=== PATIENT | female | born 1990 | race Caucasian/White ===

== ENCOUNTER 2025-02-03 09:37 | Inpatient (IN) | payer BC, SELFPAY ==
[2025-02-03] VITALS (46 sets, daily range): BP systolic 91–123; BP diastolic 61–81; PULSE 65–86; RESP 14–23; TEMP 35.9–36.2; O2SAT 68–100; BMI 33.3
[2025-02-03] MEDS: Lactated Ringers 1,000 ML 999 ML IV (10:10)
[2025-02-03 10:48] LABS: Absolute Lymphocyte Count 1.17 X10^3/uL (0.83-4.51); Absolute Neutrophil Count 5.2 X10^3/uL (2.0-7.7); Basophil# 0.05 X10^3/uL; Basophil% 0.7 % (0-1); Eosinophil# 0.03 X10^3/uL; Eosinophils% 0.4 % (0-5); Hematocrit 35.6 % (37-47); Hemoglobin 12.3 g/dL (12.0-15.0); Lymphocyte # 1.17 X10^3/ul (0.83-4.51); Lymphocyte % 16.7 % (19-41); Mean Corp Hgb Conc 34.6 g/dL (32-36); Mean Corpuscular Volume 86.8 fL (81-99); Mean Platelet Vol. 11.6 fl (6.2-12.0); Monocyte# 0.48 X10^3/uL; Monocyte% 6.8 % (0-10); NRBC Flagged by Analyzer 0 % (0-5); Neutrophil # 5.22 X10^3/uL (2.7-7.7); Neutrophil % 74.5 % (47-70); Platelet Count 213 K/mm3 (150-450); RBC Distribution Width SD 40.9 fl (35.1-43.9)
[2025-02-03] MEDS: Acetaminophen 500 MG Tablet 1000 MG PO ×3 (10:49→23:56)
[2025-02-03] MEDS: Lactated Ringers 1,000 ML 150 ML IV (10:49)
[2025-02-03 11:10] LABS: Syphilis Antibodies Nonreactive (Nonreactive)
[2025-02-03] MEDS: Sodium Citrate/Citric Acid 30 ML UDC PO (11:51)
--- NOTE | 2025-02-03 12:05 | HP.PCM.OB_ITS ---
HPI - General General Date of Admission: 02/03/25 Date of Service: 02/03/25 HPI Narrative ALYSSA PRATT, is a 34 F who presents for repeat . Maternal Data Information MARII Calculator Estimated Delivery Date Method Current WG Current Estimate 02/08/25 Manual 39w 2d [facility] Medical History Thyroid disorder Home Medications ?Medication ?Instructions ?Recorded ?Last Taken ?Type levothyroxine 50 mcg tablet 50 mcg PO DAILY hypothyroi d 02/03/25 02/03/25 06:00 History vitamins-iron fumarate 65 1 tab PO DAILY preg jarred 02/03/25 02/02/25 10:00 History mg iron-folic acid 1 mg tablet (Mynatal Plus) Allergy/AdvReac Type Severity Reaction Status Date / Time succinylcholine Allergy Severe Other Verified 02/03/25 10:15 latex Allergy Intermediate Rash Verified 02/03/25 11:43 Surgical History History of surgery Social History Smoking Status: Never smoker History Elective abortions Hx Para 2 Spontaneous abortions Hx # Term Pregnancies Ectopic pregnancies Hx # Pregnancies Multiple births # of living children Vital Signs Vital Signs Vital Signs: 02/03/25 09:47 02/03/25 09:47 02/03/25 10:45 Temperature Temperature Source Temporal Pulse Rate 78 Respiratory Rate Pulse Ox 99 02/03/25 10:45 02/03/25 10:45 02/03/25 10:45 Temperature Temperature Source Pulse Rate 79 Respiratory Rate 15 Pulse Ox 99 02/03/25 10:45 Temperature 97.1 F L Temperature Source Pulse Rate Respiratory Rate Pulse Ox Weight Weight: 182 lb Body Mass Index (BMI) 33.3 Physical Exam Const alert, oriented x3 and no apparent distress Chest inspection of chest normal GI soft to palpation, non-tender and non-distended Inspection: gravid Labs Labs Labs: Blood Type O POSITIVE Antibody Screen NEGATIVE Hct 35.6 % (37-47) L Hgb 12.3 g/dL (12.0-15.0) Syphilis Total Ab Nonreactive (Nonreactive) Assessment & Plan (1) Previous section: COMMENT: PLAN: Plan Admit to L&D Proceed with repeat . Informed consent signed after discussing R/B/A. Routine care.
[2025-02-03] MEDS: Cefazolin 2 GM in Syringe IV (12:10)
--- NOTE | 2025-02-03 13:00 | OP.PCM_ITS ---
Maternal Data Information MARII Calculator Estimated Delivery Date Method Current WG Current Estimate 02/08/25 Manual 39w 2d Operative Report (OB) Details Procedure Type: low transverse Date of Procedure: 02/03/25 Procedure Start Time: 12:26 Procedure Stop Time: 13:10 Pre-Operative Diagnosis: Repeat Elective Post-Operative Diagnosis: Same as Pre-operative diagnosis Classification: Scheduled Type of Anesthesia: Spinal Antibiotic Given: Ancef 2 grams IV x1 Drain: Tyson to straight drain Estimated Blood Loss: 700ml Fluids Replaced: 1000ml Findings Description of surgery: The patient was taken to the operating room where spinal anesthesia was placed & found to be adequate. She was prepped and draped in the dorsal supine position with a leftward tilt. A Pfannenstiel skin incision was made approximately 2 cm above the symphysis pubis and carried through to the underlying fascia with the scalpel. The fascia was incised incised in the midline and extended laterally with the Byrd scissors. The rectus muscles were in the midline and the peritoneum was entered carefully and bluntly. The peritoneal incision was stretched and the bladder blade was inserted. Vesicouterine peritoneum was tented up, incised & then bladder flap created gently. The uterine incision was made in a low transverse fashion with the scalpel and extended superiorly and inferiorly with blunt dissection. The infant's head was brought to the incision in the flexed position and delivered without difficulty. The head was gently guided to allow delivery of the anterior and posterior shoulders. The body then delivered with fundal pressure in the standard fashion. The 3VC cord was clamped and cut in slightly delayed fashion. The infant was handed off to the waiting pediatric radiologist. The placenta was delivered with fundal massage and gentle traction in the standard fashion. The uterus was exteriorized and cleared of clots and debris. The uterine incision was closed with #1 Vicryl suture in a running locked fashion. Monocryl suture was used in an imbricating fashion. The incision was examined and was found to be hemostatic. The uterus was returned to the abdominal cavity. After irrigating Reena was placed over the uterine incision as some areas were denuded (but hemostatic). The rectus muscle was examined and any bleeding was Bovie cauterized. The fascia was closed with PDS suture in a running standard fashion. The subcutaneous tissue was examining and any bleeding was Bovie cauterized. The subcutaneous tissue was reapproximated with interrupted sutures. The skin was closed in a subcuticular fashion by the PRIMARY SPECIAL EDUCATION TEACHER while I was present in the OR. The remainder of the procedure was performed by me with assistance. Surgical findings: normal maternal uterus and adnexa Presentation: Vertex Amniotic Membrane Rupture Type: Artificial Amniotic Fluid Description: Clear Placental Delivery Description: Expressed Placenta Disposition: [facility] Specimen collected: No Cord Vessel Description: 3 Vessels Cord Entanglement: None A gender: Female (7-2) (1 minute): 9 Delayed Cord Clamping: Yes Design Engineering Manager birdcage assembler: Yes Roof Service Technician: Enmanuel Barrios Tasks completed by hardware sales assistant: Opening & closing and Retracting Complications Complications: No
[2025-02-03] MEDS: Oxytocin 15 Units/NS 250ml 15 UNITS/250 ML IV.SOLN 83 UNITS IV (13:30)
[2025-02-03] MEDS: Ketorolac 30 MG/ML Syringe IV ×2 (13:48→20:42)
[2025-02-04] MEDS: Enoxaparin 40 MG/0.4 ML Syringe SC (02:25)
[2025-02-04] MEDS: Ketorolac 30 MG/ML Syringe IV ×2 (02:26→08:44)
[2025-02-04 04:36] VITALS: BP 94/54; PULSE 60; RESP 16; TEMP 36.3; O2SAT 99
--- NOTE | 2025-02-04 04:44 | PN.OBGYN_ITS ---
Subjective Subjective Doing well per patient and nursing staff. Ambulating and taking PO without difficulty. Voiding and passing flatus. Pain controlled. , services for assistance. Denies headache, visual changes, chest pain, shortness of breath, leg pain or increased bleeding. Lochia normal. Objective Data Objective Data Vital Signs: Vital Signs Temp Pulse Resp BP Pulse Ox O2 Del Method 97.3 F L 60 16 94/54 L 99 Room Air 02/04/25 04:36 02/04/25 04:36 02/04/25 04:36 02/04/25 04:36 02/04/25 04:36 02/04/25 04:36 Oxygen Delivery Method Room Air Weight: 182 lb Body Mass Index (BMI) 33.3 Intake & Output: Intake and Output for Last 24 Hours 02/02/25 02/03/25 02/04/25 23:59 23:59 23:59 Intake Total 1447.5 / 1447.5 Output Total 800 / 800 Balance 647.5 / 647.5 Lab / Micro Data 02/03/25 10:10 Labs: Laboratory Results - last 24 hr 02/03/25 10:10: WBC 7.0, RBC 4.10 L, Hgb 12.3, Hct 35.6 L, MCV 86.8, MCH 30.0, MCHC 34.6, RDW Std Deviation 40.9, RDW Coeff of Lucy 13.0, Plt Count 213, MPV 11.6, Immature Gran % (Auto) 0.900, Neut % (Auto) 74.5 H, Lymph % (Auto) 16.7 L, [place] % (Auto) 6.8, Eos % (Auto) 0.4, Baso % (Auto) 0.7, Absolute Neuts (auto) 5.2, Absolute Lymphs (auto) 1.17, Nucleated RBC % 0, Syphilis Total Ab Nonreactive, Blood Type O POSITIVE, Antibody Screen NEGATIVE ROS Constitutional Constitutional: Reports systems reviewed and no addt'l complaints, except as documented; Denies headache(s) Eyes Eyes: Denies acute decrease in peripheral vision, blurry vision or change in vision ENT HEENT: Reports systems reviewed and no addt'l complaints, except as documented Cardiovascular Cardiovascular: Denies chest pain or dizziness Respiratory/Chest Respiratory/Chest: Denies cough, dyspnea, dyspnea on exertion, shortness of breath at rest or shortness of breath with exertion Gastrointestinal Gastrointestinal: Denies abdominal pain, diarrhea, nausea or vomiting Genitourinary Genitourinary: Denies abdominal discomfort Musculoskeletal Musculoskeletal: Denies limited range of motion Integumentary Integumentary: Reports systems reviewed and no addt'l complaints, except as documented Neurologic Neurologic: Reports systems reviewed and no addt'l complaints, except as documented Psychiatric Psychiatric: Reports systems reviewed and no addt'l complaints, except as documented Endocrine Endocrinology: Reports systems reviewed and no addt'l complaints, except as documented Hematologic/Lymphatic Hematologic/Lymphatic: Reports systems reviewed and no addt'l complaints, except as documented Allergic/Immunologic Allergic/Immunologic: Reports systems reviewed and no addt'l complaints, except as documented Physical Exam Const alert and oriented x3 General Appearance: cooperative Orientation / Consciousness: awake, oriented to person, oriented to place and oriented to time Exam Limitations: no limitations HEENT normocephalic Head and Scalp: normal to inspection, normocephalic and atraumatic Face and Sinus: normal facial exam Eyes General Eye: normal appearance of both eyes Neck full ROM Chest Chest: symmetrical chest wall rise Resp normal respiratory effort and normal air movement Auscultation: clear to auscultation bilaterally Cardio regular rate, regular rhythm, S1 normal heart sound, S2 normal heart sound, no murmurs, no rub, no gallops and no clicks GI normal to inspection, nondistended, normoactive bowel sounds and non-tender GI Narrative: fundus firm 2 below U. Dressing dry and intact appearance of the vagina normal Bladder / Kidney Exam: no CVA tenderness Back/Spine normal ROM Extremity normal to inspection and full ROM Skin no rashes or lesions noted Neuro oriented x3, CN's II-XII intact bilaterally and moves all extremities Sensorium / Orientation: awake, alert and oriented to person Motor Exam: clonus absent Deep Tendon Reflexes: Rt Patellar (L4): 2+ and Lt Patellar (L4): 2+ Assessment & Plan (1) S/P repeat low transverse : (2) Lactating mother: PLAN: Plan 1) Routine POD#1 2) Vitals stable 3) I&O 4) Pain management 5) services PRN 6) Planning D/C home tomorrow
[2025-02-04 04:50] LABS: Hematocrit 32.3 % (37-47); Hemoglobin 11.4 g/dL (12.0-15.0); Mean Corp Hgb Conc 35.3 g/dL (32-36); Mean Corpuscular Hgb 30.5 pg (27.0-32.0); Mean Corpuscular Volume 86.4 fL (81-99); Mean Platelet Vol. 11.2 fl (6.2-12.0); Platelet Count 197 K/mm3 (150-450); RBC Distribution Width SD 40.8 fl (35.1-43.9); Red Blood Count 3.74 M/mm3 (4.2-5.4); White Blood Count 12.1 K/mm3 (4.4-11.0)
[2025-02-04] MEDS: Acetaminophen 500 MG Tablet 1000 MG PO ×4 (06:09→23:46)
[2025-02-04] MEDS: Levothyroxine 50 MCG Tablet PO (06:10)
[2025-02-04] MEDS: Senna/Docusate Sodium 1 Tablet PO (08:44)
[2025-02-04] MEDS: 0.9% Saline Lock 10 ML Syringe IV (08:44)
[2025-02-04 09:08] VITALS: BP 107/62; PULSE 60; RESP 16; TEMP 36.4; O2SAT 98
[2025-02-04 12:30] VITALS: BP 112/59; PULSE 57; RESP 16; TEMP 36.6; O2SAT 16
[2025-02-04] MEDS: Ibuprofen 600 MG Tablet PO ×2 (14:09→20:12)
[2025-02-04 16:40] VITALS: BP 113/60; PULSE 62; RESP 16; TEMP 36.2; O2SAT 97
[2025-02-04] MEDS: SimETHICONE 80 MG Chewable Tablet PO (20:12)
[2025-02-04 20:15] VITALS: BP 124/73; PULSE 70; RESP 15; TEMP 36.5; O2SAT 97
--- NOTE | 2025-02-04 20:45 | NURSING ---
This RN called [facility] due to pt experiencing increased pain 04/18. This RN recieved an order for PRN oxy to give pt.
[2025-02-04] MEDS: oxyCODONE 5 MG Tablet PO (20:49)
[2025-02-05 02:00] VITALS: BP 107/69; PULSE 80; RESP 15; TEMP 36.4; O2SAT 97
[2025-02-05] MEDS: Ibuprofen 600 MG Tablet PO ×2 (02:15→08:02)
[2025-02-05] MEDS: Enoxaparin 40 MG/0.4 ML Syringe SC (02:15)
[2025-02-05] MEDS: Acetaminophen 500 MG Tablet 1000 MG PO (05:45)
[2025-02-05] MEDS: Levothyroxine 50 MCG Tablet PO (06:30)
[2025-02-05 08:00] VITALS: BP 103/62; PULSE 59; RESP 16; TEMP 36.2; O2SAT 97
[2025-02-05] MEDS: Senna/Docusate Sodium 1 Tablet PO (08:02)
--- NOTE | 2025-02-05 09:55 | PCM.PN.OB ---
Subjective Subjective Pain is mostly controlled. She would like some pain medicine for home. Objective Data Objective Data Vital Signs: Vital Signs Temp Pulse Resp BP Pulse Ox O2 Del Method 97.1 F L 59 L 16 103/62 97 Room Air 02/05/25 08:00 02/05/25 08:00 02/05/25 08:00 02/05/25 08:00 02/05/25 08:00 02/05/25 08:00 Oxygen Delivery Method Room Air Weight: 182 lb Body Mass Index (BMI) 33.3 Intake & Output: Intake and Output for Last 24 Hours 02/03/25 02/04/25 02/05/25 23:59 23:59 23:59 Intake Total 1447.5 / 1447.5 Output Total 800 / 800 1000 / 1000 Balance 647.5 / 647.5 -1000 / -1000 Lab / Micro Data 02/04/25 04:40 Physical Exam Const alert, oriented x3 and no apparent distress HEENT normocephalic GI soft to palpation, non-tender and non-distended GI Narrative: fundus firm, mid & below umbilicus Incision - bandage c/d/i Extremity normal to inspection and no calf tenderness Assessment & Plan (1) S/P repeat low transverse : COMMENT: POD#2 PLAN: Plan D/c home
--- NOTE | 2025-02-05 09:56 | PCM.DC.SUM ---
Providers Date of Admission: 02/03/25 Primary Care Physician: Dr. Sandy Randle MD Reason For Visit: REPEAT Diagnosis Discharge Diagnosis (1) S/P repeat low transverse : Status: Acute Code(s): Z98.891 - History of uterine scar from previous surgery Plan D/c home Medications at Discharge Home Medications levothyroxine 50 mcg tablet 50 mcg PO DAILY hypothyroid 02/03/25 vitamins-iron fumarate 65 mg iron-folic acid 1 mg tablet (Mynatal Plus) 1 tab PO DAILY 02/03/25 acetaminophen 500 mg tablet 1,000 mg (2 x 500 mg) PO Q6H #0 tabs 02/05/25 ibuprofen 600 mg tablet 600 mg PO Q6H #0 tabs 02/05/25 oxycodone 5 mg tablet 5 mg PO Q4H PRN PRN Pain scale 4-10 3 days #5 tabs 02/05/25 Hospital Course Operations section Procedures None Summary of Care Provided Minutes Spent on Discharge: 20 Weight / BMI Weight Weight: 182 lb Body Mass Index (BMI) 33.3 ABG / Lab / Microbiology Data 02/04/25 04:40 D/C Instructions Discharge Diet: No restrictions Discharge Activity: May Shower May resume sexual activity in: 6 weeks Weight Bearing Status: Weight bearing as tolerated Call your doctor if your incision/area has: Continuous Slow Oozing, Sudden Increased Bleeding, Increased Pain/ Swelling, Increased Redness, Foul Smelling Discharge and Swelling at the incision site Call your doctor if you observe: Fever of 101 or Higher, Coldness, Increased Pain, Change in Color, Inability to urinate, Inability to have a bowel movement, Using more than 1 pad per hour, Shortness of breath, Dizziness, Fainting spells, Chest pain, Increased palpitations (irregular heartbeat), Calf discomfort and Uncontrolled pain Suture Line Care: Avoid Pulling/Pushing and Avoid Pinching/Bending Remove Dressing in: 1 week Cleanse incision/area with: Soap & Water DC O2, CPAP, BIPAP Needs Home O2 Discharge instructions: No Please Follow Up With: León Duncan MD When: Follow up in 2 and 6 weeks for visits. Meaningful Use Info Meaningful Use Meaningful Use Diagnoses (Choose all that apply): None applicable Ischemic Stroke Statin Dosing Therapy Reference: STATIN DOSE THERAPY REFERENCE: * Patients > 75 years receive moderate or high dose statin therapy. * Patients 75 years or YOUNGER should receive HIGH intensity statin dose unless contraindicated. You will be required to document reason for non-treatment if statin daily dose does not meet guidelines. HIGH DOSE STATIN THERAPY DAILY Atorvastatin > than or = to 40 mg Rosuvastatin > than or = to 20 mg Amlodipine + Atorvastatin > than or = to 2.5/40 mg Ezetimibe + Simvastatin 10/80 mg Simvastatin 80mg Discharge Plan Admission Admit Date/Time: 02/03/25 09:37 Primary Reason for Your Visit: section Attending Provider: León Duncan Primary Care Provider: Sandy Randle Discharge Orders/Prescriptions Prescriptions: New acetaminophen 500 mg Tablet 1,000 mg PO Q6H Qty: 0 0RF ibuprofen 600 mg Tablet 600 mg PO Q6H Qty: 0 0RF oxycodone 5 mg Tablet 5 mg PO Q4H PRN PRN (Reason: Pain scale 4-10) 3 Days Qty: 5 0RF No Action levothyroxine 50 mcg tablet 50 mcg PO DAILY Mynatal Plus 65 mg iron- 1 mg tablet 1 tab PO DAILY Referrals / Follow Up: Sandy Randle MD [Primary Care Provider] - Disposition Disposition (needs filled in before D/C Order can be placed): Home, Self Care
== END 2025-02-05 11:00 | disposition home or self-care (01) | DRG 788 ==
PROVIDERS: Admitting Provider Obstetrics & Gynecology; PCP Family Medicine; Referring Provider Obstetrics & Gynecology; Visit Provider Obstetrics & Gynecology
PROC: 10D00Z1 Extraction of Products of Conception, Low, Open Approach (ICD-10-PCS; CPT 59514; principal; 2025-02-03 11:45)
DX: O34.211 Maternal care for low transverse scar from previous cesarean delivery (principal); E07.9 Disorder of thyroid, unspecified; O99.284 Endocrine, nutritional and metabolic diseases complicating childbirth; Z3A.39 39 weeks gestation of pregnancy; Z37.0 Single live birth; Z79.890 Hormone replacement therapy
CPT/HCPCS: 59050; 85025; 85027; 86780; 86850; 86900; 86901; 99221; A4216; G0378; J2405